=== PATIENT | female | born 1945 ===

== ENCOUNTER 2018-08-16 17:11 | Emergency (ER) | payer MEDICARE, MEDICAID ==
[2018-08-16 17:11] VITALS: BMI 28.3
--- NOTE | 2018-08-16 17:42 | C.PDOC ---
History Of Present Illness 72 y/o female with history of asthma and pacemaker placement presents to ED with c/o chest pain associated with sob and lightheadedness since last night. Patient also admits to suicidal ideation and states she hears voices telling her to kill her self. Patient denies nausea, vomiting, diarrhea, headache, HI or any other complaints at this time. PMD: Dr. Duarte <Deo Rodriguez - Last Filed: 08/16/18 18:51> History Per: Patient History/Exam Limitations: no limitations Onset/Duration Of Symptoms: Days Current Symptoms Are (Timing): Still Present <Deo Rodriguez - Last Filed: 08/16/18 18:51> <David Love - Last Filed: 08/16/18 21:29> Time Seen by Provider: 08/16/18 17:16 Chief Complaint (Nursing): Chest Pain Past Medical History Reviewed: Historical Data, Nursing Documentation, Vital Signs Vital Signs: Last Vital Signs Temp 98.6 F 08/16/18 17:30 Pulse 130 H 08/16/18 17:14 Resp 16 08/16/18 17:14 BP 118/57 L 08/16/18 17:14 Pulse Ox 97 08/16/18 17:14 - Medical History PMH: Anemia, Anxiety, Asthma, CAD, Cardia Arrhythmia, COPD, Dementia, Depression, Diabetes, Fractures (LEFT LEG), HTN, Hypercholesterolemia, Malignancy (breast cancer s/p lumpectomy ), Osteoporosis, Pulmonary Embolism Surgical History: Appendectomy, Cholecystectomy, Coronary Stent, Hernia Repair (umbilical hernia), Pacemaker - [facility] Procedures APPLICATION OF SPLINT (05/26/14) BREAST DX PROCEDURE NEC (11/14/13) CONTRAST AORTOGRAM (10/28/14) CORONAR ARTERIOGR-2 CATH (10/28/14) DRAINAGE OF LEFT UPPER LOBE BRONCHUS, ENDO, DIAGN (02/13/16) DX ULTRASOUND-THORAX NEC (11/14/13) EXCISE AXILLARY NODE (04/16/14) EXCISION OF LEFT UPPER LOBE BRONCHUS, ENDO, DIAGN (02/13/16) EXERCISE TREATMENT OF MUSCULOSK WHOLE USING ASSIST EQUIPMENT (09/08/17) GROUP PSYCHOTHERAPY (06/22/15) HOME MANAGEMENT TREATMENT USING ASSIST EQUIPMENT (09/08/17) INDIVID PSYCHOTHERAP NEC (03/18/14) INDIVIDUAL PSYCHOTHERAPY, BEHAVIORAL (06/22/15) INJECT/INFUSE NEC (05/26/15) INSERT PACE. DUAL PRABHU IN CHEST SUBCU/FASCIA, OPEN (06/05/18) INSERTION OF ONE VASCULAR STENT (06/20/13) INSERTION OF PACEMAKER LEAD INTO R VENTRICLE, PERC APPROACH (06/05/18) INSERTION OF PACEMAKER LEAD INTO RIGHT ATRIUM, PERC APPROACH (06/05/18) INSRT OF DRUG-ELUTING CORON ARTERY STENTS(S) (06/20/13) INTRODUCTION OF SERUM/TOX/VACCINE INTO MUSCLE, PERC APPROACH (06/20/17) LEFT HEART CARDIAC CATH (10/28/14) LOCAL EXCIS BREAST LES (04/16/14) LT HEART ANGIOCARDIOGRAM (06/20/13) MEASURE OF CARDIAC SAMPL & PRESSURE, L HEART, PERC APPROACH (09/28/15) NEBULIZER THERAPY (10/26/14) OTHER GROUP THERAPY (03/18/14) PERCUTAN NEEDLE BIOPSY OF BREAST (11/14/13) PERCUTANEOUS TRANSLUMINAL CORONARY ANGIOPLASTY [PTCA] (06/20/13) PHYSICAL THERAPY NEC (08/23/14) PLAIN RADIOGRAPHY OF R LOW EXTREM ART USING OTH CONTRAST (09/28/15) PLAIN RADIOGRAPHY OF RIGHT AND LEFT HEART USING OTH CONTRAST (09/28/15) PLAIN RADIOGRAPHY OF THORACIC AORTA USING OTHER CONTRAST (09/28/15) PROCEDURE ON SINGLE VESSEL (06/20/13) RT & LT HEART ANGIOCARD (10/28/14) Family History: States: No Known Family Hx - Social History Hx Alcohol Use: No Hx Substance Use: No <Deo Rodriguez - Last Filed: 08/16/18 18:51> Vital Signs: Last Vital Signs Temp 98.6 F 08/16/18 17:30 Pulse 108 H 08/16/18 19:24 Resp 16 08/16/18 19:24 BP 128/86 08/16/18 19:24 Pulse Ox 97 08/16/18 19:24 - [facility] Procedures APPLICATION OF SPLINT (05/26/14) BREAST DX PROCEDURE NEC (11/14/13) CONTRAST AORTOGRAM (10/28/14) CORONAR ARTERIOGR-2 CATH (10/28/14) DRAINAGE OF LEFT UPPER LOBE BRONCHUS, ENDO, DIAGN (02/13/16) DX ULTRASOUND-THORAX NEC (11/14/13) EXCISE AXILLARY NODE (04/16/14) EXCISION OF LEFT UPPER LOBE BRONCHUS, ENDO, DIAGN (02/13/16) EXERCISE TREATMENT OF MUSCULOSK WHOLE USING ASSIST EQUIPMENT (09/08/17) GROUP PSYCHOTHERAPY (06/22/15) HOME MANAGEMENT TREATMENT USING ASSIST EQUIPMENT (09/08/17) INDIVID PSYCHOTHERAP NEC (03/18/14) INDIVIDUAL PSYCHOTHERAPY, BEHAVIORAL (06/22/15) INJECT/INFUSE NEC (05/26/15) INSERT PACE. DUAL PRABHU IN CHEST SUBCU/FASCIA, OPEN (06/05/18) INSERTION OF ONE VASCULAR STENT (06/20/13) INSERTION OF PACEMAKER LEAD INTO R VENTRICLE, PERC APPROACH (06/05/18) INSERTION OF PACEMAKER LEAD INTO RIGHT ATRIUM, PERC APPROACH (06/05/18) INSRT OF DRUG-ELUTING CORON ARTERY STENTS(S) (06/20/13) INTRODUCTION OF SERUM/TOX/VACCINE INTO MUSCLE, PERC APPROACH (06/20/17) LEFT HEART CARDIAC CATH (10/28/14) LOCAL EXCIS BREAST LES (04/16/14) LT HEART ANGIOCARDIOGRAM (06/20/13) MEASURE OF CARDIAC SAMPL & PRESSURE, L HEART, PERC APPROACH (09/28/15) NEBULIZER THERAPY (10/26/14) OTHER GROUP THERAPY (03/18/14) PERCUTAN NEEDLE BIOPSY OF BREAST (11/14/13) PERCUTANEOUS TRANSLUMINAL CORONARY ANGIOPLASTY [PTCA] (06/20/13) PHYSICAL THERAPY NEC (08/23/14) PLAIN RADIOGRAPHY OF R LOW EXTREM ART USING OTH CONTRAST (09/28/15) PLAIN RADIOGRAPHY OF RIGHT AND LEFT HEART USING OTH CONTRAST (09/28/15) PLAIN RADIOGRAPHY OF THORACIC AORTA USING OTHER CONTRAST (09/28/15) PROCEDURE ON SINGLE VESSEL (06/20/13) RT & LT HEART ANGIOCARD (10/28/14) <Davdi Love - Last Filed: 08/16/18 21:29> Review Of Systems Except As Marked, All Systems Reviewed And Found Negative. Constitutional: Negative for: Fever, Chills Cardiovascular: Positive for: Chest Pain. Negative for: Light Headedness Respiratory: Positive for: Shortness of Breath Psych: Positive for: Suicidal ideation <Deo Rodriguez - Last Filed: 08/16/18 18:51> Physical Exam - Physical Exam Additional Physical Exam Comments: Constitutional: No acute distress. Head: Normocephalic. Atraumatic. Eyes: PERRL. ENT: Moist mucous membranes. Neck: Supple. Cardiovascular: Tachycardic Radial pulse 2+ bilaterally. Chest:Reproducible chest wall tenderness Respiratory: Clear to auscultation bilaterally. GI: Soft. Nontender. Nondistended. Back: No CVA tenderness. Musculoskeletal: No tenderness or swelling of extremities. Skin: No rash. Neurologic: Alert, no focal deficit <Deo Rodriguez - Last Filed: 08/16/18 18:51> ED Course And Treatment - Laboratory Results Result Diagrams: 08/16/18 17:39 08/16/18 17:39 O2 Sat by Pulse Oximetry: 97 (RA) Pulse Ox Interpretation: Normal <Deo Rodriguez - Last Filed: 08/16/18 18:51> - Laboratory Results Result Diagrams: 08/16/18 17:39 08/16/18 17:39 <David Love - Last Filed: 08/16/18 21:29> Medical Decision Making Medical Decision Making: Plan: Blood work, CXR, UA CXR IMPRESSION: No active pulmonary disease. Enzymes negative. HR now below 100 with intermittent tachycardia. Pending urine. Crisis notified of patient's complaints. Signed out to ED night team. <Deo Rodriguez - Last Filed: 08/16/18 18:51> Disposition <Deo Rodriguez - Last Filed: 08/16/18 18:51> Discussed With : Mingo Duarte Comment: accepted the pt on his service and took over the care at 9:28 PM Doctor Will See Patient In The: Hospital Counseled Patient/Family Regarding: Studies Performed, Diagnosis - Disposition Disposition Time: 19:00 - POA Present On Arrival: Poor Glycemic Control <David Love - Last Filed: 08/16/18 21:29> - Disposition Disposition: HOSPITALIZED Condition: FAIR Forms: [facility] (Fijian) - Clinical Impression Clinical Impression: Chest pain, Depression - Scribe Statement The provider has reviewed the documentation as recorded by the Elodiaibraza Gee All medical record entries made by the Scribe were at my direction and personally dictated by me. I have reviewed the chart and agree that the record accurately reflects my personal performance of the history, physical exam, medical decision making, and the department course for this patient. I have also personally directed, reviewed, and agree with the discharge instructions and disposition. <JenniferDeo Toscano - Last Filed: 08/16/18 18:51> Decision To Admit <Deo Rodriguez - Last Filed: 08/16/18 18:51> - Pt Status Changed To: Hospital Disposition Of: Inpatient - Admit Certification Admit to Inpatient:: After my assessment, the patient will require hospitalization for at least two midnights. This is because of the severity of symptoms shown, intensity of services needed, and/or the medical risk in this patient being treated as an outpatient. - InPatient: Physician Admission Certification: I certify that this patient requires 2 or more midnights of care for the following reason:: After my assessment, the patient will require hospitalization for at least two midnights. This is because of the severity of symptoms shown, intensity of services needed, and/or the medical risk in this patient being treated as an outpatient. - . Bed Request Type: Telemetry Admitting Physician: Mingo Duarte <David Love - Last Filed: 08/16/18 21:29> - . Patient Diagnosis: Chest pain, Depression
[2018-08-16 17:52] LABS: BASO % 0.6 % (0.0-2.0); EOS # 0.4 K/uL (0.0-0.7); HEMOGLOBIN 12.8 g/dL (11.0-16.0); LYMPH % 27.2 % (20.0-40.0); MEAN CORPUSCULAR HEMOGLOBIN 28.2 pg (27.0-31.0); MEAN CORPUSCULAR HGB CONC 33.9 g/dL (33.0-37.0); MEAN PLATELET VOLUME 9.3 fL (7.2-11.7); MONO # 0.6 K/uL (0.0-0.8); MONO % 7.6 % (0.0-10.0); NEUT # 4.4 K/uL (1.8-7.0); NEUT % 58.6 % (50.0-75.0); NRBC % 0.1 % (0.0-2.0); RBC 4.52 Mil/uL (3.80-5.20); RED CELL DISTRIBUTION WIDTH 14.4 % (11.5-14.5); WHITE BLOOD COUNT 7.5 K/uL (4.8-10.8)
[2018-08-16 17:55] LABS: MEAN CELL VOLUME 83.2 fL (81.0-99.0)
[2018-08-16 18:12] LABS: ALB/GLOB RATIO 1.3 (1.0-2.1); ALBUMIN 4.4 g/dL (3.5-5.0); BLOOD UREA NITROGEN 19 mg/dL (7-17); CALCIUM 9.6 mg/dl (8.6-10.4); GFR NON-AFRICAN AMERICAN 55
[2018-08-16 18:16] LABS: CK-MB 0.55 ng/mL (0.0-3.38)
--- NOTE | 2018-08-16 18:25 | RAD ---
Date of service: 08/16/2018 HISTORY: chest pain COMPARISON: 06/09/2016 FINDINGS: LUNGS: The lungs are well inflated and clear. There is a linear scar in the left mid lung. PLEURA: No pleural effusions or pneumothorax. CARDIOVASCULAR: The heart is normal in size. No aortic atherosclerotic calcification present. There is a right-sided permanent pacing device. OSSEOUS STRUCTURES: Within normal limits for the patient's age. VISUALIZED UPPER ABDOMEN: Normal. OTHER FINDINGS: None. IMPRESSION: No active pulmonary disease.
[2018-08-16 18:28] LABS: ALT/SGPT 23 U/L (9-52); AST/SGOT 45 U/L (14-36)
[2018-08-16 19:52] LABS: BARBITURATES, UR NEGATIVE (NEGATIVE); OPIATES, UR NEGATIVE (NEGATIVE); PHENCYCLIDINE, UR NEGATIVE (NEGATIVE)
[2018-08-16 19:53] LABS: BENZODIAZEPINES, UR POSITIVE (NEGATIVE); SQUAMOUS EPITHIAL 2 /hpf (0-5); URINE BILIRUBIN NEGATIVE (NEGATIVE); URINE BLOOD NEGATIVE (NEGATIVE); URINE CLARITY Clear (Clear); URINE COLOR Yellow (YELLOW); URINE GLUCOSE (UA) 3+ mg/dL (Normal); URINE LEUKOCYTE ESTERASE NEG Leu/uL (Negative); URINE PROTEIN NEGATIVE (NEGATIVE); URINE UROBILINOGEN NORMAL mg/dL (0.2-1.0)
[2018-08-16 22:12] VITALS: BP 121/82; PULSE 100; RESP 12; TEMP 97.9; O2SAT 98
[2018-08-17] MEDS ORDERED: Albuterol-Ipratrop 3 mg / 0.5 (3 ml) UD INH SCH
[2018-08-17] MEDS ORDERED: Enoxaparin 40 mg Syringe SC SCH (10:00)
--- NOTE | 2018-08-17 11:05 | PCM.PSYCH ---
Initial Psychiatric Evaluation - Initial Psychiatric Evaluation Type of Admission: Voluntary Legal Status: Capacity History of Present Illness and Precipitating Events: 72 y/o female with history of asthma and pacemaker placement presents to ED with c/o chest pain associated with sob and lightheadedness since last night. Patient also admits to suicidal ideation and states she hears voices telling her to kill her self. Patient denies nausea, vomiting, diarrhea, headache, HI or any other complaints at this time. Past Psychiatric History - Past Psychiatric History Pertinent Medical Hx (Current Medical&Sleep Prob, Allergies): Allergies Allergy/AdvReac Type Severity Reaction Status Date / Time No Known Allergies Allergy Verified 08/16/18 17:32 Aspirin [Ecotrin] 81 mg PO DAILY 03/30/17 Acetaminophen [Tylenol 325mg tab] 650 mg PO Q6 PRN tab 09/08/17 Albuterol HFA [Ventolin HFA 90 mcg/actuation (8 g)] 2 puff INH RQ4 PRN inhaler 09/08/17 Pravastatin Sodium [Pravachol] 20 mg PO HS tab 09/08/17 Apixaban [Eliquis] 2.5 mg PO BID tab 09/16/17 Docusate [Colace] 100 mg PO TID cap 09/16/17 Meclizine [Meclizine*] 25 mg PO TID PRN tab 09/16/17 Sertraline [Zoloft] 50 mg PO DAILY tab 09/16/17 clonazePAM [Klonopin] 0.5 mg PO HS tab 09/16/17 Famotidine [Pepcid] 40 mg PO DAILY PRN #14 tab 02/16/18 Bisoprolol [Zebeta] 5 mg PO DAILY #30 tab 02/26/18 Albuterol Sulfate [Proair Hfa] 0.09 mg IH Q6H PRN #2 inh 05/19/18 Insulin Detemir [Levemir] 12 units SC HS #1 vial 05/24/18 metFORMIN [glucOPHAGE] 500 mg PO BIDWM #60 tab 05/24/18 Albuterol HFA [Ventolin HFA 90 mcg/actuation (8 g)] 1 puff INH DAILY 06/03/18 Mirtazapine [Remeron] 15 mg PO HS 06/03/18 Quetiapine Fumarate [Seroquel] 100 mg PO HS 06/03/18 Zolpidem Tartrate [Ambien] 10 mg PO DAILY 06/03/18 Oxycodone HCl/Acetaminophen [Percocet 10-325 mg Tablet] 1 tab PO Q6 PRN #14 tablet 06/08/18 Acetaminophen [Acetaminophen 8 Hour] 650 mg PO Q8 PRN #21 tablet.er 07/03/18 Albuterol HFA [Ventolin HFA 90 mcg/actuation (8 g)] 2 puff IH Q4H PRN #1 inh 07/21/18 Prednisone 50 mg PO DAILY #4 tablet 07/21/18 Amoxicillin/Clavulanate [Augmentin 875 MG-125 MG] 1 tab PO BID #14 tab 08/14/18
--- NOTE | 2018-08-17 23:50 | CARD ---
APPROVED REPORT Date of service: 08/16/2018 EKG Measurement Heart [id number] ID [id number] <Conclusion> Sinus tachycardia with premature atrial complexes Otherwise normal ECG
== END 2018-08-16 22:18 | disposition left against medical advice (07) ==
LOC: C.ER 17:11
DX: F32.9 Major depressive disorder, single episode, unspecified (principal); R07.9 Chest pain, unspecified; E11.9 Type 2 diabetes mellitus without complications; E78.00 Pure hypercholesterolemia, unspecified; I10 Essential (primary) hypertension; I25.10 Atherosclerotic heart disease of native coronary artery without angina pectoris; Z85.3 Personal history of malignant neoplasm of breast; J44.9 Chronic obstructive pulmonary disease, unspecified
CPT/HCPCS: 71045; 80053; 81001; 82550; 82553; 82948; 83735; 84100; 84484; 85025; 93005; 99285; G0480